=== PATIENT | male | born 1990 | race Two or more races ===

== ENCOUNTER 2020-01-01 21:15 | Emergency (ER) | payer OTHER ==
[~2020-01-01] VITALS: Ht 177.8 cm; Wt 140.6 kg
[2020-01-01 21:40] VITALS: BP 126/85
[2020-01-01] MEDS ORDERED: cefTRIAXone W LIDOCAINE 1 GM IM IM ONE (21:45)
[2020-01-01] MEDS ORDERED: TETANUS-DIPTH-ACEL PERTUSSIS 0.5ML SYR Tdap IM ONE (21:45)
[2020-01-01] MEDS ORDERED: cefTRIAXone SOD 1,000 MG VL IM ONE (22:00)
[2020-01-01] MEDS ORDERED: HYDROcodone-ACET 5/325MG TAB PO ONE (22:00)
[2020-01-01] MEDS ORDERED: BACITRACIN TOP OINT 1 UD PKG TOP ONE (22:30)
== END 2020-01-01 22:57 | disposition home or self-care (01) ==
LOC: ER 21:18
DX: S60.222A Contusion of left hand, initial encounter (principal); W22.8XXA Striking against or struck by other objects, initial encounter; Y93.89 Activity, other specified; Y92.89 Other specified places as the place of occurrence of the external cause; Y99.8 Other external cause status
CPT/HCPCS: 73110; 73130; 90471; 90715; 96372; 99284; J0696